=== PATIENT | male | born 1980 | race Caucasian/White ===

== ENCOUNTER 2017-04-23 13:01 | Emergency (ER) | payer OTHER ==
[2017-04-23] MEDS ORDERED: LORazepam 2 MG/ML INJ ONE (13:22)
[2017-04-23 13:24] LABS: BASOPHILS 0.7 % (0.0-2.0); EOSINOPHILS 0.2 % (0.0-6.0); HEMATOCRIT 44.3 % (42.0-54.0); HEMOGLOBIN 15.4 g/dL (14.0-18.0); LYMPHOCYTES 13.9 % (20.0-40.0); MEAN CELL VOLUME 100.4 fL (80.0-100.0); MEAN CORPUS. HGB CONCENTRATION 34.7 g/dL (32.0-36.0); MEAN CORPUSCULAR HEMOGLOBIN 34.8 pg (29.0-35.0); MEAN PLATELET VOLUME 9.6 fL (7.4-10.4); MONOCYTES 9.4 % (2.0-10.0); MONOCYTES# 0.7 X 10^3uL (0.2-1.0); NEUTROPHILS 75.8 % (54.0-75.0); NEUTROPHILS# 5.4 X 10^3uL (2.6-6.7); PLATELET COUNT 104 X 10^3uL (130-440); RED BLOOD COUNT 4.41 X 10^6uL (4.20-6.10); RED CELL DISTRIBUTION WIDTH 12.4 % (11.5-14.5); WHITE BLOOD COUNT 7.1 X 10^3uL (3.9-10.7)
[2017-04-23] MEDS ORDERED: THIAMINE HCL 200 MG/2 ML VIAL ONE (13:33)
[2017-04-23] MEDS ORDERED: MAGNESIUM SULFATE 1 GM/2 ML VIAL ONE ×2 (13:33→13:34)
[2017-04-23] MEDS ORDERED: NORMAL SALINE 1,000 ML IV ONE (13:34)
[2017-04-23] MEDS ORDERED: MULTIVITAMINS 10 ML VIAL IV ONE (13:34)
[2017-04-23 13:37] LABS: ALKALINE PHOSPHATASE 204 U/L (38-126); ALT 57 U/L (21-72); AST 141 U/L (17-59); BILIRUBIN, DIRECT 1.8 mg/dL (0.0-0.4); BILIRUBIN, TOTAL 4.3 mg/dL (0.2-1.3); BLOOD UREA NITROGEN 6 mg/dL (9-20); CALCIUM 10.3 mg/dL (8.4-10.2); CHLORIDE 95 mmol/L (98-107); EST GLOMERULAR FILTRATION RATE > 60 mL/min; GLUCOSE 165 mg/dL (70-100); LIPASE 121 U/L (23-300); POTASSIUM 3.2 mmol/L (3.5-5.1); SODIUM 136 mmol/L (137-145)
[2017-04-23 13:40] LABS: ETHYL ALCOHOL < 10 mg/dL (<10)
[2017-04-23 13:43] LABS: INR 1.4
[2017-04-23] MEDS ORDERED: POTASSIUM CHLORIDE/NS 20 MEQ/1,000 ML BAG IV ONE (14:29)
[2017-04-23] MEDS ORDERED: CHLORDIAZEPOXIDE 25 MG CAPSULE PO ONE (15:20)
[2017-04-23 15:51] LABS: BLOOD UREA NITROGEN 6 mg/dL (9-20); CALCIUM 8.9 mg/dL (8.4-10.2); CHLORIDE 100 mmol/L (98-107); EST GLOMERULAR FILTRATION RATE > 60 mL/min; GLUCOSE 118 mg/dL (70-100); POTASSIUM 4.4 mmol/L (3.5-5.1); SODIUM 134 mmol/L (137-145)
[2017-04-23 16:12] LABS: URINE MUCUS NONE SEEN (Up to 25%); URINE RBC NONE SEEN (0-5/hpf); URINE SQUAMOUS EPITHELIAL CELL NONE SEEN (<= 15/hpf); URINE WBC NONE SEEN (0-4/hpf)
--- NOTE | 2017-04-23 16:35 | ER PHYSICIAN DOCUMENTATION ---
Physician Documentation [facility] Name:Shaun Armendariz Age:36 yrs Sex:Male :1980 Arrival Date:04/23/2017 Time:13:01 BedTrauma-A Private MD: Tony Diaz Disposition: 04/23/17 16:03 Transfer ordered to [facility]. Diagnosis are Generalized Seizure - 2nd to Alcohol Withdrawal, Alcohol (ETOH) Withdrawal, Dehydration, Delirium Tremens (DT's), Hypokalemia. - Reason for transfer: Higher level of care. - Accepting physician is [facility] Hospitalist. - Condition is Fair. - Problem is an acute exacerbation. - Symptoms have improved. COBRA Form completed? Yes Transfer - Mode of Transportation Ambulance HPI: 04/23 13:15 This 36 yrs old Male presents to ER via EMS with complaints of Seizure. cd 13:15 The patient presents after having a single isolated seizure, that lasted 2 minute(s), cd the episode(s) was witnessed, by family, . Character of seizure(s): Loss of consciousness: the patient experienced loss of consciousness, Motor activity: generalized, Incontinence: none, Apnea: the patient did not experience apnea, Circulation: the patient did not experience evidence of pulse disturbance, Eye movements: are unknown. Seizure onset: just prior to arrival. Context: the seizure(s) was witnessed, by a significant other, , occurred at home, occurred while the patient was sitting, Contributing factors: recent alcohol abuse, and stopped drinking two days ago. His states he did not sleep well at all last night and has had the shakes. Some Visual hallucinations. Seizure Hx: Last seizure: The patient's last seizure was approximately 2 year(s) ago, due to alcohol withdrawal, Seizure medications: none. Associated injury: The patient did not suffer any apparent associated injury. Current symptoms: confusion, decreased level of consciousness, headache, Patient had a second seizure in the ED that lasted two minutes, generalized, with some cyanosis. . The patient has experienced a previous episode, approximately 2 years ago, states he started drinking again about 2 weeks ago.. Historical: - Allergies: No known drug Allergies; - Home Meds: 1. None - PMHx: SEIZURES; CHRONIC BACK PAIN; - PSHx: None; - Tetanus: < 10 years. - Ebola Screening: : Patient negative for fever greater than or equal to 101.5 degrees Fahrenheit, and additional compatible Ebola Virus Disease symptoms. - Immunization history: Flu Vaccine < 1 year. - Social history: Smoking status: Patient uses tobacco products, current every day smoker. ROS: 15:43 ENT: Negative for injury, pain, epistaxis and discharge. cd Neck: Negative for injury, pain, stiffness and swelling. Back: Negative for injury, pain or muscle spasms. MS/Extremity: Negative for injury, deformity, edema, calf tenderness, pain or coldness. 15:43 Skin: Negative for injury, rash, itching and discoloration. cd 15:43 Constitutional: Positive for fatigue, malaise, poor PO intake, Negative for chills, fever. 15:43 Cardiovascular: Negative for chest pain, edema, palpitations. 15:43 Respiratory: Negative for shortness of breath, wheezing. 15:43 Abdomen/GI: Positive for anorexia, Negative for abdominal pain, nausea, vomiting, diarrhea, abdominal cramps, abdominal distension. 15:43 Neuro: Positive for altered mental status, headache, seizure activity, speech changes, Negative for syncope, tingling, weakness. 15:43 Psych: Positive for anxiety, alcohol dependence, visual hallucinations, Negative for drug dependence, suicide gesture, suicidal ideation. 15:43 All other systems are negative. Exam: Head/Face: Normocephalic, atraumatic. Eyes: Pupils equal round and reactive to light, extra-ocular motions intact. Lids and lashes normal. Conjunctiva and sclera are non-icteric and not injected. Cornea within normal limits. Periorbital areas with no swelling, redness, or edema. ENT: Nares patent. No nasal discharge, no septal abnormalities noted. Tympanic membranes are normal and external auditory canals are clear. Oropharynx with no redness, swelling, or masses, exudates, or evidence of obstruction, uvula midline. Mucous membranes dry Neck: Trachea midline, no thyromegaly or masses palpated, and no cervical lymphadenopathy. Supple, full range of motion without nuchal rigidity, or vertebral point tenderness. No Meningismus. Cardiovascular: Regular rate and rhythm with a normal S1 and S2. No gallops, murmurs, or rubs. Normal PMI, no JVD. No pulse deficits. Respiratory: Lungs have equal breath sounds bilaterally, clear to auscultation and percussion. No rales, rhonchi or wheezes noted. No increased work of breathing, no retractions or nasal flaring. Abdomen/GI: Soft, non-tender, with normal bowel sounds. No distension or tympany. No guarding or rebound. No evidence of tenderness throughout. Back: No spinal tenderness. No costovertebral tenderness. Full range of motion. Skin: Warm, dry with normal turgor. Normal color with no rashes, no lesions, and no evidence of cellulitis. 15:47 MS/ Extremity: Pulses equal, no cyanosis. Neurovascular intact. Full, normal range cd of motion. 15:47 Constitutional: The patient appears awake, non-diaphoretic, non-toxic, well developed, well nourished, anxious, listless, obese, in obvious distress, moderately distressed, restless. 15:47 Neuro: Orientation: to person, Mentation: lucid, slow to respond, Cranial nerves: CN II- XII are normal as tested, Motor: moves all fours, Sensation: is normal, seizure activity, is not currently displayed, but the patient is post-ictal, but then had another seizure in the Emergency Department. Vital Signs: 13:10 BP 163 / 88; Pulse 94; Resp 16; Temp 98.0(TE); Pulse Ox 98% on 2 lpm NC; Weight 113.4 rh kg; Height 6 ft. 0 in. (182.88 cm); Pain 0/10; 13:34 BP 140 / 101; Pulse 108; Resp 15; Pulse Ox 97% on 2 lpm NC; rh 14:52 BP 143 / 95; Pulse 100; Resp 17; Pulse Ox 98% on 2 lpm NC; rh 13:10 Body Mass Index 33.91 (113.40 kg, 182.88 cm) rh Suri Coma Score: 15:47 Eye Response: spontaneous(4). Verbal Response: confused(4). Motor Response: obeys cd commands(6). Total: 14. MDM: 13:12 Patient medically screened. cd 13:20 Data interpreted: Pulse oximetry: on room air is 98 %. Interpretation: normal. cd 15:45 Response to treatment: the patient's symptoms have markedly improved after treatment, cd patient is well hydrated. and as a result, I will transfer patient to [facility] for observation. 15:50 Differential diagnosis: seizure, Alcohol Withdrawal Seizure, Dehydration, Hx of cd Alcoholism. 15:52 Data reviewed: vital signs, nurses notes, EMS record, old medical records, lab test cd result(s), EKG, and as a result, I will *Transfer Patient administer IV fluids, NS bolus, NS maintenence, prescribe sedation medication, lorazepam, , Banana bag, Magnesium, Librium and Potassium replacement. 15:53 Counseling: I had a detailed discussion with the patient and/or guardian regarding: the cd historical points, exam findings, and any diagnostic results supporting the discharge/admit diagnosis, lab results, the need to transfer to another facility, for higher level of care. ECG:. 16:08 EKG attached 04/25 08:45 Physician consultation: Dr. GALICIA Hospitalist was called at 15:55, was contacted at 16:00, regarding admission, to the floor, consult, patient's condition, need to evaluate the patient as soon as possible, and will see patient in inpatient room, shortly, later today, after a discussion of the case, a recommendation for transfer for higher level of care is made. 08:53 ECG: ECG:. 04/23 13:39 Order name: CBC AUTO DIF, MDIF/RMOR IF IND; Complete Time: 13:59 EDMS 04/23 13:58 Interpretation: Normal Except: NEUTROPHILS 75.8. 04/23 13:40 Order name: BASIC METABOLIC PANEL; Complete Time: 13:59 EDMS 04/23 13:59 Interpretation: Abnormal: POTASSIUM 3.2; CARBON DIOXIDE 21; GLUCOSE 165; Hyperglycemia, cd Hypokalemia. 04/23 13:40 Order name: HEPATIC PANEL; Complete Time: 13:59 EDMS 04/23 13:59 Interpretation: Abnormal: ALKALINE PHOSPHATASE 204; AST 141; BILIRUBIN, TOTAL 4.3; cd BILIRUBIN, DIRECT 1.8; Hx of Alcoholism. 04/23 13:40 Order name: LIPASE; Complete Time: 13:59 EDMS 04/23 13:59 Interpretation: Normal. 04/23 13:40 Order name: ETHYL ALCOHOL; Complete Time: 13:59 EDMS 04/23 13:59 Interpretation: Normal. 04/23 13:44 Order name: PROTIME/INR; Complete Time: 13:59 EDMS 04/23 13:59 Interpretation: PROTIME 17.9; Elevated due to liver disease. 04/23 16:03 Order name: BASIC METABOLIC PANEL; Complete Time: 16:04 EDAZ 04/23 16:04 Interpretation: Normal Except: Hyponatremia. 04/23 16:46 Order name: UA W/ MICRO -CULTURE IF IND EDAZ 04/23 16:46 Order name: URINE DRUG SCREEN, QUAL EDAZ 04/23 13:13 Order name: Iv Saline Lock; Complete Time: 13:17 04/23 13:13 Order name: Pulse Ox Continuous; Complete Time: 13:17 cd 04/23 13:13 Order name: Seizure Precautions; Complete Time: 13:17 04/23 13:13 Order name: Accucheck; Complete Time: 13:17 04/23 13:17 Order name: Pulse Ox Continuous; Complete Time: 13: 04/23 13:17 Order name: Cardiac Monitoring - Continuous; Complete Time: 13:17 04/23 13:33 Order name: EKG - 12 Lead; Complete Time: 13:33 lpr EC/27 15:25 Rate is 102 beats/min. Rhythm is regular. QRS [place] is Normal. CA interval is normal. cd QRS interval is normal. QT interval is normal. No Q waves. T waves are Normal. No ST changes noted. Clinical impression: Sinus tachycardia and No evidence of ischemia. Interpreted by me. Dispensed Medications: 13:05 Drug: NS 0.9% 1000 ml; Route: IV; Rate: bolus; Site: right antecubital; rh 14:00 Follow up: IV Status: Completed infusion; IV Intake: 1000ml rh 13:12 Drug: Ativan 1 mg; Route: IVP; Site: right antecubital; rh 13:33 Follow up: Response: No adverse reaction lpr 13:26 Drug: Banana Bag - (NS 0.9% 1000 ml, folic acid 600 mcg, Thiamine 100 mg, Multivitamin lpr 10 ml, Magnesium Sulfate 1 grams); Route: IV; Rate: calculated rate; Site: right antecubital; 14:24 Follow up: IV Status: Completed infusion; IV Intake: 1000ml rh 13:27 Drug: Magnesium Sulfate 1 grams; Route: IVPB; Infused Over: 1 hrs; Site: right lpr antecubital; 14:40 Follow up: IV Status: Completed infusion; IV Intake: 1ml rh 14:24 Drug: NS with KCl 20 mEq/L 1000 ml/hr; Volume: 1000 ml; Route: IV; Rate: 1000 ml/hr; rh Infused Over: 1 hrs; Site: right femoral; 15:25 Follow up: IV Status: Completed infusion; IV Intake: 1000ml rh 15:10 Drug: librium - chlordiazePOXIDE 50 mg; Route: PO; rh 15:10 Follow up: Response: No adverse reaction rh Point of Care Testing: Blood Glucose: 13:21 Blood Glucose: 174 mg/dL; rh Ranges: Critical Glucose Levels:Adult <50 mg/dl or >400 mg/dl <40 mg/dl or >180 mg/dl Signatures: Kamini Genao RN RN cb Daley, Chris, MD MD cd Roberts, Leslie, RN RN lpr Hofsess, Rachel
--- NOTE | 2017-04-23 16:35 | ER NURSING DOCUMENTATION ---
Nurse's Notes [facility] Name:Shaun Armendariz Age:36 yrs Sex:Male :1980 Arrival Date:04/23/2017 Time:13:01 BedTrauma-A Private MD: Diagnosis:Generalized Seizure- 2nd to Alcohol Withdrawal;Alcohol (ETOH) Withdrawal;Dehydration;Delirium Tremens (DT's);Hypokalemia Presentation: 04/23 13:02 Acuity: SHY 2 rh 13:05 Presenting complaint: EMS states: Pt is a known alcoholic. states that he has had rh seizure in the past while withdrawing from ETOH. Pt is here on vacation and states that he had vodka 2 days ago. Transition of care: Home. 13:05 Method Of Arrival: EMS: 410 rh Triage Assessment: 13:06 General: Appears uncomfortable. General: Behavior is anxious, cooperative. Pain: Denies rh pain. EENT: Oral mucosa is dry. Historical: - Allergies: No known drug Allergies; - Home Meds: 1. None - PMHx: SEIZURES; CHRONIC BACK PAIN; - PSHx: None; - Tetanus: < 10 years. - Ebola Screening: : Patient negative for fever greater than or equal to 101.5 degrees Fahrenheit, and additional compatible Ebola Virus Disease symptoms. - Immunization history: Flu Vaccine < 1 year. - Social history: Smoking status: Patient uses tobacco products, current every day smoker. Screenin:20 Infectious Disease Risk None. Abuse screen: Denies threats or abuse. Denies injuries rh from another. Nutritional screening: No deficits noted. Assessment: 13:11 Neuro: Seizure activity noted at this time. Seizure lasted approximately 2 minutes. rh Patient is post-ictal at this time. 13:20 See Triage Assessment done by same RN. rh 14:09 Neuro: Level of Consciousness is awake, alert, obeys commands, Oriented to person, rh place, event. 15:10 Reassessment: Pt is shaky, picking at the leads, iv site and his skin. Pt is having rh hallucinations of random people in the room and pills on the bed that are not there. Pt is confused. . Vital Signs: 13:10 BP 163 / 88; Pulse 94; Resp 16; Temp 98.0(TE); Pulse Ox 98% on 2 lpm NC; Weight 113.4 rh kg; Height 6 ft. 0 in. (182.88 cm); Pain 0/10; 13:34 BP 140 / 101; Pulse 108; Resp 15; Pulse Ox 97% on 2 lpm NC; rh 14:52 BP 143 / 95; Pulse 100; Resp 17; Pulse Ox 98% on 2 lpm NC; rh 13:10 Body Mass Index 33.91 (113.40 kg, 182.88 cm) rh Suri Coma Score: 15:47 Eye Response: spontaneous(4). Verbal Response: confused(4). Motor Response: obeys cd commands(6). Total: 14. ED Course: 13:02 Patient arrived in ED. cj 13:03 Triage completed. lp 13:05 Jane Lares is Primary Nurse. rh 13:05 Oxygen Oxygen administration via nasal cannula @ 2L/min. rh 13:05 Notified ED Physician of patient's arrival and chief complaint. Dr. Ayala notified. rh 13:10 Maintain field IV. Site clean & dry. Gauge & site: 18 G IN THE R AC. rh 13:10 monitoring manager on. Pulse ox on. NIBP on. rh 13:12 Tony Ayala MD is Attending Physician. cd 13:20 Valuables Remains with patient Patient has correct armband on for positive rh identification. Placed in gown. Bed in low position. Call light in reach. Side rails up X2. Seizure precautions initiated. Seizure pads on bed close monitoring by staff. 13:24 EKG done. (by ED staff). Reviewed by Tony Ayala MD. lpr 15:51 Assisted to bedside commode. rh 16:08 EKG attached cb Administered Medications: 13:05 Drug: NS 0.9% 1000 ml; Route: IV; Rate: bolus; Site: right antecubital; rh 14:00 Follow up: IV Status: Completed infusion; IV Intake: 1000ml rh 13:12 Drug: Ativan 1 mg; Route: IVP; Site: right antecubital; rh 13:33 Follow up: Response: No adverse reaction lpr 13:26 Drug: Banana Bag - (NS 0.9% 1000 ml, folic acid 600 mcg, Thiamine 100 mg, Multivitamin lpr 10 ml, Magnesium Sulfate 1 grams); Route: IV; Rate: calculated rate; Site: right antecubital; 14:24 Follow up: IV Status: Completed infusion; IV Intake: 1000ml rh 13:27 Drug: Magnesium Sulfate 1 grams; Route: IVPB; Infused Over: 1 hrs; Site: right lpr antecubital; 14:40 Follow up: IV Status: Completed infusion; IV Intake: 1ml rh 14:24 Drug: NS with KCl 20 mEq/L 1000 ml/hr; Volume: 1000 ml; Route: IV; Rate: 1000 ml/hr; rh Infused Over: 1 hrs; Site: right femoral; 15:25 Follow up: IV Status: Completed infusion; IV Intake: 1000ml rh 15:10 Drug: librium - chlordiazePOXIDE 50 mg; Route: PO; rh 15:10 Follow up: Response: No adverse reaction rh Point of Care Testing: Blood Glucose: 13:21 Blood Glucose: 174 mg/dL; rh Ranges: Intake: 14:00 IV: 1000ml; Total: 1000ml. rh 14:24 IV: 1000ml; Total: 2000ml. rh 14:40 IV: 1ml; Total: 2001ml. rh 15:25 IV: 1000ml; Total: 3001ml. rh Outcome: 16:03 ER care complete, transfer ordered by MD. bello 16:31 Transferred: Patient will be transferred to: [facility]. Facility rh Acceptance Time: April 23, 2017 at 16:00 Patient's face sheet was faxed to accepting facility. Face Sheet included patient's name, address, age, gender, contact information and insurance information. Patient will be transported by: [facility]. Report called to: ROSY Merino RN AT [facility] Nurse and Physician Charting and Notes were sent to Accepting Facility. All tests and/or procedures with results, if applicable, were sent to accepting facility. 16:31 Condition: stable 16:31 Discharge Assessment: Patient awake. 16:31 Instructed on need for transfer 16:34 Patient left the ED. rh Signatures: Kamini Genao RN RN cb Pavlish, Lena, RN RN lp Daley, Chris, MD MD cd Roberts, Leslie, RN RN lpr Hofsess, Rachel Lillie Ye
[2017-04-23 16:39] LABS: URINE APPEARANCE CLEAR; URINE COLOR ORANGE; URINE SPECIFIC GRAVITY > OR = 1.030 (0.001-1.035)
[2017-04-23 16:40] LABS: URINE LEUKOCYTE ESTERASE NEGATIVE (NEGATIVE); URINE NITRITE NEGATIVE (NEGATIVE); URINE PH 7.5 (5-7); URINE PROTEIN 300mg/dL (3+) (NEG - TRACE)
[2017-04-23 16:41] LABS: URINE GLUCOSE NORMAL (NEGATIVE); URINE KETONE 100mg/dL (3+) (NEGATIVE)
[2017-04-23 16:42] LABS: URINE AMORPHOUS SEDIMENT UP TO 25%/lpf (Up to 25%); URINE BACTERIA NONE SEEN (<10/hpf); URINE BILIRUBIN 0.5 mg/100ml (1+) (NEGATIVE); URINE BLOOD 50 Ery/uL (2+) (NEGATIVE); URINE UROBILINOGEN 4mg/dL (NEG-1mg/dL)
== END 2017-04-23 16:35 | disposition short-term general hospital (02) ==
LOC: EEVIPCON 13:01 → ER 13:01
DX: R56.9 Unspecified convulsions (principal); F10.231 Alcohol dependence with withdrawal delirium; E86.0 Dehydration; E87.6 Hypokalemia; F17.210 Nicotine dependence, cigarettes, uncomplicated; R41.82 Altered mental status, unspecified; R51 Headache; F41.9 Anxiety disorder, unspecified; F10.251 Alcohol dependence with alcohol-induced psychotic disorder with hallucinations; R73.9 Hyperglycemia, unspecified; E87.1 Hypo-osmolality and hyponatremia; R00.0 Tachycardia, unspecified; Z74.3 Need for continuous supervision
CPT/HCPCS: 80048; 80076; 80305; 80320; 81001; 83690; 85025; 85610; 93005; 96365; 96367; 96368; 96375; 99285; A0425; A0427; A0429; J2060; J3475; J3480; J7030